=== PATIENT | male | born 1945 | race Caucasian/White ===

== ENCOUNTER 2019-11-08 11:35 | Emergency (ER) | payer OTHER, MEDICARE, BC ==
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
[2019-11-08] MEDS ORDERED: Sodium Chloride 0.9% 10 ML Syringe FLUSH PRN (12:51)
[2019-11-08] MEDS ORDERED: Metoclopramide 10 MG/2 ML SDV IV ONE (12:51)
[2019-11-08] MEDS ORDERED: Morphine 4 MG/ML Syringe IVPUSH ONE (12:51)
[2019-11-08] MEDS ORDERED: Diphtheria,Pertussis(Acell),Tetanus Vaccine 0.5 ML SDV IM ONE (13:28)
[2019-11-08] MEDS ORDERED: Sodium Chloride 0.9% 10 ML Syringe FLUSH ONE (13:46)
[2019-11-08] MEDS ORDERED: Sodium Chloride 0.9% 100 ML IV SCH (14:00)
[2019-11-08] MEDS ORDERED: Iopamidol 612 MG/ML 100 ML Bottle IV SCH (14:00)
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
[2019-11-08 15:13] VITALS: BP 137/81; PULSE 75
== END 2019-11-08 15:58 | disposition home or self-care (01) ==
LOC: JP.ED 11:35
DX: S20.212A Contusion of left front wall of thorax, initial encounter (principal); S50.12XA Contusion of left forearm, initial encounter; S50.312A Abrasion of left elbow, initial encounter; I10 Essential (primary) hypertension; Z23 Encounter for immunization; Z79.899 Other long term (current) drug therapy; V53.5XXA Driver of pick-up truck or van injured in collision with car, pick-up truck or van in traffic accident, initial encounter
CPT/HCPCS: 36415; 70450; 71260; 72125; 80053; 81001; 85025; 86850; 86900; 86901; 90471; 90715; 93005; 96374; 96375; 99284; J2270; J2765; J7050; Q9967; 93010

== ENCOUNTER 2021-07-15 16:02 | Inpatient (IN) | payer MEDICARE, BC ==
[2021-07-15] MEDS ORDERED: Sodium Chloride 0.9% 10 ML Syringe FLUSH PRN ×2 (16:35→20:04)
[2021-07-15 17:17] LABS: ESTIMATED GFR 59 (>60)
[2021-07-15 17:18] LABS: TROPONIN I HIGH SENSITIVITY 72.3 pg/mL (<=60.3)
[2021-07-15] MEDS ORDERED: Furosemide 40 MG/4 ML VIAL IVPUSH ONE (17:32)
[2021-07-15] MEDS ORDERED: Sodium Chloride 0.9% 10 ML Syringe FLUSH ONE (17:40)
[2021-07-15] MEDS ORDERED: Sodium Chloride 0.9% 75 ML IV SCH (17:45)
[2021-07-15] MEDS ORDERED: Iopamidol 755 Mg/ML 100 ML Bottle IV SCH (17:45)
[2021-07-15] MEDS ORDERED: Ondansetron 4 MG/2 ML SDV IV PRN (20:04)
[2021-07-15] MEDS ORDERED: Acetaminophen 325 MG Tab PO PRN (20:04)
[2021-07-15] MEDS: Enoxaparin 40 MG/0.4 ML Syringe SUBCUT SCH (20:35)
[2021-07-15 21:15] LABS: CORONAVIRUS COVID-19 NAA NEGATIVE (NEGATIVE)
[2021-07-16 05:40] LABS: ESTIMATED GFR > 60 (>60)
[2021-07-16] MEDS ORDERED: Furosemide 40 MG/4 ML VIAL IVPUSH ONE ×2 (07:00→15:00)
[2021-07-16] MEDS ORDERED: Potassium Chloride 20 MEQ Tab.ER PO ONE (09:00)
[2021-07-16] MEDS: atorvaSTATin 10 MG Tab PO SCH (09:15)
[2021-07-16] MEDS: amLODIPine 5 MG Tab PO SCH (09:15)
[2021-07-16] MEDS: Enoxaparin 40 MG/0.4 ML Syringe SUBCUT SCH (20:22)
[2021-07-17 05:26] LABS: ESTIMATED GFR > 60 (>60)
[2021-07-17 05:47] LABS: TROPONIN I HIGH SENSITIVITY 64.1 pg/mL (<=60.3)
[2021-07-17] MEDS: Furosemide 40 MG/4 ML VIAL IVPUSH SCH ×2 (07:00→09:00)
[2021-07-17] MEDS ORDERED: Potassium Chloride 20 MEQ Tab.ER PO ONE (08:55)
[2021-07-17] MEDS: atorvaSTATin 10 MG Tab PO SCH (08:58)
[2021-07-17] MEDS: amLODIPine 5 MG Tab PO SCH (09:02)
[2021-07-17] MEDS ORDERED: Furosemide 40 MG/4 ML VIAL IVPUSH ONE (15:00)
[2021-07-17] MEDS: Enoxaparin 40 MG/0.4 ML Syringe SUBCUT SCH (20:52)
[2021-07-17] MEDS: Potassium Chloride 20 MEQ Tab.ER PO SCH (20:52)
[2021-07-18 05:32] LABS: ESTIMATED GFR > 60 (>60)
[2021-07-18] MEDS: atorvaSTATin 10 MG Tab PO SCH (09:04)
[2021-07-18] MEDS: Furosemide 40 MG/4 ML VIAL IVPUSH SCH (09:04)
[2021-07-18] MEDS: Potassium Chloride 20 MEQ Tab.ER PO SCH ×2 (09:04→21:07)
[2021-07-18] MEDS: Lisinopril 10 MG Tab PO SCH (09:06)
[2021-07-18] MEDS ORDERED: Furosemide 40 MG/4 ML VIAL IVPUSH ONE (15:00)
[2021-07-18] MEDS: Enoxaparin 40 MG/0.4 ML Syringe SUBCUT SCH (21:07)
[2021-07-19] MEDS ORDERED: Furosemide 40 MG Tab PO SCH (09:00)
[2021-07-19] MEDS ORDERED: Hydrochlorothiazide/Triamterene 25-37.5 Tab PO SCH (09:00)
[2021-07-19 11:24] VITALS: BP 130/65; PULSE 73
[2021-07-19] MEDS: atorvaSTATin 10 MG Tab PO SCH (11:24)
[2021-07-19] MEDS: Lisinopril 10 MG Tab PO SCH (11:24)
== END 2021-07-19 13:41 | disposition home or self-care (01) | DRG 291 ==
LOC: JP.ED 16:02 → JP.MS 19:07
PROVIDERS: ADMIT Hospitalist; ATTEND Internal Medicine
DX: J81.0 Acute pulmonary edema (principal); I11.0 Hypertensive heart disease with heart failure; I50.31 Acute diastolic (congestive) heart failure; Z68.41 Body mass index [BMI] 40.0-44.9, adult; E66.9 Obesity, unspecified; I35.0 Nonrheumatic aortic (valve) stenosis; Z79.899 Other long term (current) drug therapy; G47.30 Sleep apnea, unspecified; Z90.49 Acquired absence of other specified parts of digestive tract; Z98.890 Other specified postprocedural states; Z20.822 Contact with and (suspected) exposure to COVID-19
CPT/HCPCS: 0241U; 36415; 71046; 71275; 78452; 80048; 80053; 83735; 83880; 84443; 84484; 85025; 93005; 93010; 93017; 93306; 96374; 99222; 99232; 99239; 99284; 99285; A9270-GY; A9500; J1650; J1940; J2785; J3490; Q9967